=== PATIENT | female | born 1965 | race African-American/Black ===

== ENCOUNTER 2022-07-15 11:04 | Emergency (ER) | payer OTHER ==
[~2022-07-15] VITALS: Ht 175.3 cm; Wt 154.6 kg
[2022-07-15 14:25] VITALS: BP 138/82
[2022-07-15] MEDS ORDERED: ACETAMINOPHEN 500 MG TAB PO ONE (14:45)
== END 2022-07-15 15:20 | disposition home or self-care (01) ==
LOC: EDSEX 11:04 → M ED 11:04
DX: S06.0X0A Concussion without loss of consciousness, initial encounter (principal); S00.05XA Superficial foreign body of scalp, initial encounter; W22.8XXA Striking against or struck by other objects, initial encounter; M25.462 Effusion, left knee; M25.562 Pain in left knee; Z86.73 Personal history of transient ischemic attack (TIA), and cerebral infarction without residual deficits; Z86.718 Personal history of other venous thrombosis and embolism; Z88.2 Allergy status to sulfonamides; Z88.5 Allergy status to narcotic agent; Y92.009 Unspecified place in unspecified non-institutional (private) residence as the place of occurrence of the external cause; Y93.9 Activity, unspecified; Y99.9 Unspecified external cause status